=== PATIENT | female | born 1995 | race Caucasian/White ===

== ENCOUNTER 2020-07-24 18:32 | Emergency (ER) | payer OTHER ==
[~2020-07-24] VITALS: Ht 154.9 cm; Wt 108.9 kg
[2020-07-24] MEDS ORDERED: VIVANCE PO (19:22)
[2020-07-24] MEDS ORDERED: REVIA 50 MG TAB50 MG PO (19:22)
[2020-07-24] MEDS ORDERED: [UNRECOGNIZED DRUG - OTHER] PO (19:23)
[2020-07-24] MEDS ORDERED: DESYREL150 MG PO (19:23)
[2020-07-24] MEDS ORDERED: CATAPRES-TTS 20.2 MG PO (19:24)
[2020-07-24] MEDS ORDERED: PROAIR HFA8.5 GM INH (19:24)
[2020-07-24] MEDS ORDERED: LATUDA20 MG PO (19:24)
[2020-07-24 19:57] LABS: INFLUENZA A ANTIGEN Negative (Negative)
[2020-07-24] MEDS ORDERED: VENTOLIN HFA 1818 GM INH (20:03)
[2020-07-24] MEDS ORDERED: KEFLEX500 M1 PO (20:03)
[2020-07-24] MEDS ORDERED: BACTRIM DS TAB1 EACH PO (20:03)
[2020-07-24] MEDS ORDERED: TAMIFLU75 MG PO (20:03)
[2020-07-24] MEDS ORDERED: ONDANSETRON HCL4 M2 PO (20:04)
[2020-07-24 20:10] VITALS: BP 107/63
== END 2020-07-24 20:11 | disposition home or self-care (01) ==
LOC: M.ERS 18:32
PROVIDERS: Nurse Practitioner Family
DX: J10.1 Influenza due to other identified influenza virus with other respiratory manifestations (principal); F42.4 Excoriation (skin-picking) disorder; Z20.828 Contact with and (suspected) exposure to other viral communicable diseases; J45.909 Unspecified asthma, uncomplicated; F17.210 Nicotine dependence, cigarettes, uncomplicated